=== PATIENT | female | born 1965 | race Caucasian/White ===

== ENCOUNTER 2018-01-10 08:00 | Outpatient (RCR) | payer BC, OTHER ==
[2018-03-08] MEDS ORDERED: BUSPAR5 MG PO (13:46)
[2018-03-08] MEDS ORDERED: LAMICTAL 100MG100 MG PO (13:46)
[2018-03-08] MEDS ORDERED: WELLBUTRIN 75MG75 MG PO (13:47)
[2018-03-08] MEDS ORDERED: SINEQUAN 2525 MG/CAP PO (13:48)
== END 2018-04-03 | disposition home or self-care (01) ==
LOC: WSC
DX: M54.2 Cervicalgia (principal); G89.29 Other chronic pain

== ENCOUNTER 2018-03-08 03:11 | Observation (INO) | payer BC, OTHER ==
[~2018-03-08] VITALS: Ht 175.3 cm; Wt 102.0 kg
[2018-03-08 13:39] VITALS: BP 130/66; PULSE 42; TEMP 98.4
[2018-03-08] MEDS ORDERED: BUSPAR5 MG PO (13:46)
[2018-03-08] MEDS ORDERED: LAMICTAL 100MG100 MG PO (13:46)
[2018-03-08] MEDS ORDERED: WELLBUTRIN 75MG75 MG PO (13:47)
[2018-03-08] MEDS ORDERED: SINEQUAN 2525 MG/CAP PO (13:48)
[2018-03-08 21:07] VITALS: BP 119/59; PULSE 81; TEMP 98.6
[2018-03-08 23:04] VITALS: BP 109/74; PULSE 86; TEMP 98.6
[2018-03-09 03:06] VITALS: BP 122/57; PULSE 88; TEMP 98.3
[2018-03-09 07:51] VITALS: BP 112/60; PULSE 76; TEMP 98.8
[2018-03-09 12:36] VITALS: TEMP 99.7
[2018-03-09 13:09] VITALS: BP 124/68; PULSE 86
== END 2018-03-09 16:59 | disposition home or self-care (01) ==
LOC: MEDICAL 03:11
DX: N20.1 Calculus of ureter (principal); F31.9 Bipolar disorder, unspecified; Z79.899 Other long term (current) drug therapy
CPT/HCPCS: C1769; C2617; G0378; G0379; J0690; J1100; J1885; J2405; J2704; J3010; J7030; Q9967

== ENCOUNTER → 2018-11-18 | Outpatient (CLI) | payer BC, OTHER ==
[~2018-11-18] MED LIST: BUSPAR5 MG PO; LAMICTAL 100MG100 MG PO; SINEQUAN 2525 MG/CAP PO; WELLBUTRIN 75MG75 MG PO
== END ==
LOC: COL.RAD 15:14
DX: R10.9 Unspecified abdominal pain (principal); Z90.710 Acquired absence of both cervix and uterus; Z90.6 Acquired absence of other parts of urinary tract

== ENCOUNTER 2019-03-01 08:28 | Outpatient (RCR) | payer BC, OTHER | END 2019-04-10 12:39 | disposition home or self-care (01) | LOC: WSPT 08:28 | DX: Q66.7 Congenital pes cavus (principal); M72.2 Plantar fascial fibromatosis; Z90.89 Acquired absence of other organs ==

== ENCOUNTER → 2021-01-09 | Outpatient (CLI) | payer BC, OTHER | LOC: COL.RAD 07:08 | DX: R10.11 Right upper quadrant pain (principal); Z90.710 Acquired absence of both cervix and uterus; Z90.49 Acquired absence of other specified parts of digestive tract | CPT/HCPCS: Q9967 ==